=== PATIENT | male | born 1965 | race Two or more races ===

== ENCOUNTER 2017-11-30 08:49 | Outpatient (CLI) | payer OTHER | END 2017-11-30 08:51 | disposition home or self-care (01) | LOC: SONOGRAMA 08:49 | DX: M65.871 Other synovitis and tenosynovitis, right ankle and foot (principal) ==

== ENCOUNTER → 2018-05-19 | Outpatient (CLI) | payer OTHER | END | disposition home or self-care (01) | LOC: RAD 501 10:14 | DX: H43.822 Vitreomacular adhesion, left eye (principal) ==

== ENCOUNTER → 2018-12-03 | Outpatient (CLI) | payer OTHER | END | disposition home or self-care (01) | LOC: RAD 501 13:34 | DX: M19.071 Primary osteoarthritis, right ankle and foot (principal); M19.072 Primary osteoarthritis, left ankle and foot ==

== ENCOUNTER 2020-01-19 14:15 | Outpatient (CLI) | payer OTHER | END 2020-01-19 14:23 | disposition home or self-care (01) | LOC: RAD 14:15 | PROVIDERS: ATTEND Internal Medicine Cardiovascular Disease | DX: M12.88 Other specific arthropathies, not elsewhere classified, other specified site (principal) ==

== ENCOUNTER → 2020-10-19 | Outpatient (CLI) | payer OTHER | END | disposition home or self-care (01) | LOC: RAD 14:31 | PROVIDERS: ATTEND Internal Medicine Cardiovascular Disease | DX: M54.5 Low back pain (principal) ==

== ENCOUNTER 2021-12-13 10:15 | Outpatient (CLI) | payer OTHER | END 2021-12-13 10:16 | disposition home or self-care (01) | LOC: NUCLEAR 10:15 | PROVIDERS: ATTEND Internal Medicine Rheumatology | DX: I70.213 Atherosclerosis of native arteries of extremities with intermittent claudication, bilateral legs (principal) ==

== ENCOUNTER 2024-05-27 07:43 | Outpatient (CLI) | payer OTHER | END 2024-05-27 07:44 | disposition home or self-care (01) | LOC: NUCLEAR 07:43 | DX: I73.9 Peripheral vascular disease, unspecified (principal) ==